=== PATIENT | female | born 1950 | race Caucasian/White ===

== ENCOUNTER → 2017-07-04 13:29 | Outpatient (CLI) | payer MEDICARE, BC | END | disposition home or self-care (01) | LOC: D.MAMMO 11:45 | DX: Z12.31 Encounter for screening mammogram for malignant neoplasm of breast (principal) ==

== ENCOUNTER 2018-03-12 16:06 | Emergency (ER) | payer MEDICARE, BC ==
[~2018-03-12] VITALS: Ht 167.6 cm; Wt 80.9 kg
[~2018-03-12 16:06] MED LIST: DULCOLAX10 MG/SUPP RC; HYDROCHLOROTHIA25 MG PO; METOPROLOL TART50 MG PO; NORVASC2.5 MG PO; PLAVIX75 MG PO; VITAMIN D31000 UNIT PO
[2018-03-12 16:10] VITALS: Ht 167.6 cm; Wt 80.9 kg
[2018-03-12 16:40] LABS: BASOPHILS 0.1 % (0-2); EOSINOPHILS 0.5 % (0-7); HEMATOCRIT 39.7 % (36.0-48.0); HEMOGLOBIN 13.9 g/dL (12-16); IMMATURE GRANULOCYTES 0.3 % (0-5); MCH 31.7 pg (26.0-34.0); MCV 90.4 fL (80.0-100.0); MEAN PLATELET VOLUME 9.7 fL (7.4-10.4); MONOCYTES 10.6 % (2-11); NEUTROPHILS 75.5 % (40-80); PLATELET COUNT 205 10x3/uL (130-400); RBC 4.39 10x6/uL (4.00-5.40); RDW 12.2 % (11.5-14.5); WBC 10.3 10x3/uL (4.8-10.8)
[2018-03-12 16:40] LABS: APPEARANCE CLEAR (CLEAR); BILIRUBIN NEGATIVE (NEGATIVE); COLOR STRAW (YELLOW); GLUCOSE NEGATIVE (NEGATIVE); KETONE NEGATIVE (NEGATIVE); NITRITE NEGATIVE (NEGATIVE); PROTEIN NEGATIVE (NEGATIVE); UROBILINOGEN NORMAL (NORMAL)
[2018-03-12 16:53] LABS: APTT 25.6 SECONDS (22.8-39.4); INR 1.05 (0.85-1.17); PROTIME 13.1 SECONDS (11.6-15.0)
[2018-03-12 17:09] LABS: ALBUMIN 3.7 g/dL (3.4-5.0); ALKALINE PHOSPHATASE 136 U/L (46-116); ALT (SGPT) 25 U/L (10-68); BILIRUBIN - TOTAL 0.21 mg/dL (0.2-1.3); CALC OSMOLALITY 271 mosm/kg (275-300); CALCIUM 8.7 mg/dL (8.5-10.1); CHLORIDE - SERUM 100 mmol/L (98-107); CREATININE - SERUM 1.1 mg/dL (0.6-1.3); GLUCOSE 96 mg/dL (74-106); POTASSIUM - SERUM 3.7 mmol/L (3.5-5.1); PROTEIN - SERUM 7.4 g/dL (6.4-8.2); SODIUM 135 mmol/L (136-145); UREA NITROGEN 19 mg/dL (7-18); eGFR NON AFRICAN AMERICAN 52 mL/min (90-120)
[2018-03-12 17:19] LABS: CKMB 1.3 U/L (0.0-3.6); LIPASE 114 U/L (73-393)
[2018-03-12 17:21] LABS: TROPONIN-I < 0.017 ng/mL (0.000-0.060)
[2018-03-12] MEDS ORDERED: CATAPRES0.1 MG PO (19:01)
[2018-03-12 19:38] VITALS: BP 153/86
== END 2018-03-12 19:39 | disposition home or self-care (01) ==
LOC: D.ER 16:06
PROVIDERS: Emergency Medicine
DX: I10 Essential (primary) hypertension (principal); R07.9 Chest pain, unspecified; R06.02 Shortness of breath

== ENCOUNTER 2020-05-13 16:00 | Outpatient (CLI) | payer MEDICARE, BC ==
[2018-03-12 16:10] VITALS: BMI 28.8
[~2020-05-13 16:00] MED LIST changes: +CATAPRES0.1 MG PO
== END 2020-05-13 23:59 | disposition home or self-care (01) ==
LOC: D.MAMMO 16:00
PROVIDERS: ATTEND Family Medicine
DX: Z12.31 Encounter for screening mammogram for malignant neoplasm of breast (principal)

== ENCOUNTER 2021-02-02 10:58 | Inpatient (IN) | payer MEDICARE, BC ==
[~2021-02-02] VITALS: Ht 167.6 cm; Wt 85.5 kg
[2021-02-02] VITALS (11 sets, daily range): BP systolic 149–186; BP diastolic 52–75
--- NOTE | 2021-02-02 11:30 | NUR ---
1130: PT TO ROOM 11, A&OX3, GCS 15, RR EVEN & UNLABORED, NO S/S OF ACUTE DISTRESS NOTED AT THIS TIME, PT SET TO MONITOR, EKG COMPLETED, BLOOD DRAWN AND SENT TO LAB, IV INITIATED TO RAC. WILL CONTINUE TO MONITOR. 1200: PT AMBULATED TO BATHROOM AND BACK WITH A STEADY GAIT. 1245: PT TO RADIOLOGY AT THIS TIME, NO S/S OF ACUTE DISTRESS NOTED AT TIME OF TRANSFER. 1300: PT RETURNED TO ROOM. 1400: PT RESTING IN ROOM AT THIS TIME, SET TO MONITOR, NO S/S OFA CUTE DISTRESS NOTED AT THIS TIME, WILL CONTINUE TO MONITOR., 1500: PT RETURNED FROM RADIOLOGY. NO S/S OF ACUTE DISTRESS NOTED, WILL CONTINUE TO MONITOR. 1600: SPOKE WITH CONSERVATION WORKER, PT TO BE NPO AT WA, AND NO CAFFINE AT ALL TODAY OR AFTER WA. NO S/S OF ACUTE DISTRESS NOTED AT THIS TIME, WILL CONTINUE TO MONITOR. 1700: PT TO RADIOLOGY AFTER HAVING DRANK DYE. NO S/S OF ACUTE DISTRES SNOTED AT TIME OF TRANSFER. 1800: PT GIVEN KANDIS TRAY, NO CAFFIEN 1900: REPORT GIVEN TO NIGHT RN, NO S/S OF ACUTE DISTRESS NOTED AT THIS TIME.
[2021-02-02 11:55] LABS: BASOPHILS 0.4 % (0-2); EOSINOPHILS 0.3 % (0-7); HEMATOCRIT 40.5 % (36.0-48.0); HEMOGLOBIN 13.7 g/dL (12-16); MCHC 33.8 g/dL (31.0-37.0); MCV 88.6 fL (80.0-100.0); MEAN PLATELET VOLUME 7.4 fL (7.4-10.4); MONOCYTES 10.6 % (2-11); NEUTROPHILS 79.7 % (40-80); RBC 4.57 10x6/uL (4.00-5.40); RDW 12.9 % (11.5-14.5); WBC 10.1 10x3/uL (4.8-10.8)
[2021-02-02 12:04] LABS: CALC OSMOLALITY 260 mosm/kg (275-300); CALCIUM 9.1 mg/dL (8.5-10.1); CARBON DIOXIDE 25.6 mmol/L (21.0-32.0); CHLORIDE - SERUM 93 mmol/L (98-107); CREATININE - SERUM 1.2 mg/dL (0.6-1.3); GLUCOSE 109 mg/dL (74-106); SODIUM 128 mmol/L (136-145); UREA NITROGEN 20 mg/dL (7-18); eGFR NON AFRICAN AMERICAN 47 mL/min (90-120)
[2021-02-02 12:31] LABS: ALBUMIN 4.3 g/dL (3.4-5.0); ALKALINE PHOSPHATASE 142 U/L (30-120); ALT (SGPT) 27 U/L (10-68); BILIRUBIN - TOTAL 0.31 mg/dL (0.2-1.3); CREATINE KINASE 90 UL (21-215); PROTEIN - SERUM 7.9 g/dL (6.4-8.2); TROPONIN-I < 0.017 ng/mL (0.000-0.060)
[2021-02-02 12:39] LABS: PLATELET COUNT 312 10x3/uL (130-400)
[2021-02-02 13:44] LABS: APTT 27.6 SECONDS (22.8-39.4); INR 1.16 (0.85-1.17); PROTIME 13.7 SECONDS (11.6-15.0)
[2021-02-02 13:54] LABS: BILIRUBIN NEGATIVE (NEGATIVE); KETONE NEGATIVE mg/dL (< 1+); NITRITE NEGATIVE (NEGATIVE); UROBILINOGEN NORMAL mg/dL (< 2)
--- NOTE | 2021-02-02 15:26 | NUR ---
DR. ROSEANNE FLOYD FOR CONSULT
--- NOTE | 2021-02-02 15:29 | NUR ---
SPOKE TO DR MISTRY ABOUT CONSULT, INFORMATION GIVEN
[2021-02-02 17:50] LABS: CKMB 1.2 U/L (0.0-3.6); CREATINE KINASE 86 UL (21-215)
[2021-02-02 17:55] LABS: TROPONIN-I < 0.017 ng/mL (0.000-0.060)
[2021-02-03 00:30] VITALS: BP 136/55
[2021-02-03 00:35] LABS: CKMB 1.1 U/L (0.0-3.6); CREATINE KINASE 97 UL (21-215); TROPONIN-I < 0.017 ng/mL (0.000-0.060)
[2021-02-03 04:30] VITALS: BP 148/65
[2021-02-03 06:21] LABS: BASOPHILS 0.5 % (0-2); EOSINOPHILS 0.3 % (0-7); HEMATOCRIT 39.1 % (36.0-48.0); HEMOGLOBIN 13.4 g/dL (12-16); LYMPHOCYTES 12.2 % (15-50); MCHC 34.2 g/dL (31.0-37.0); MCV 87.7 fL (80.0-100.0); MEAN PLATELET VOLUME 6.9 fL (7.4-10.4); MONOCYTES 9.9 % (2-11); NEUTROPHILS 77.1 % (40-80); PLATELET COUNT 278 10x3/uL (130-400); RBC 4.46 10x6/uL (4.00-5.40); RDW 13.2 % (11.5-14.5); WBC 9.7 10x3/uL (4.8-10.8)
[2021-02-03 06:47] LABS: ALBUMIN 3.7 g/dL (3.4-5.0); ALKALINE PHOSPHATASE 103 U/L (30-120); ALT (SGPT) 23 U/L (10-68); BILIRUBIN - TOTAL 0.35 mg/dL (0.2-1.3); CALC OSMOLALITY 260 mosm/kg (275-300); CALCIUM 8.8 mg/dL (8.5-10.1); CARBON DIOXIDE 23.3 mmol/L (21.0-32.0); CHLORIDE - SERUM 97 mmol/L (98-107); CKMB 1.3 U/L (0.0-3.6); CREATINE KINASE 102 UL (21-215); GLUCOSE 105 mg/dL (74-106); PHOSPHOROUS 3.3 mg/dL (2.5-4.9); POTASSIUM - SERUM 3.6 mmol/L (3.5-5.1); PROTEIN - SERUM 7.4 g/dL (6.4-8.2); SODIUM 130 mmol/L (136-145); TROPONIN-I < 0.017 ng/mL (0.000-0.060); UREA NITROGEN 12 mg/dL (7-18); eGFR NON AFRICAN AMERICAN 58 mL/min (90-120)
[2021-02-03] MEDS ORDERED: ATIVAN0.5 MG PO (15:48)
[2021-02-03 17:24] VITALS: Ht 167.6 cm; Wt 85.5 kg
[2021-02-03 19:00] VITALS: BP 132/55
[2021-02-04] VITALS: BP 173/66
[2021-02-04 04:00] VITALS: BP 182/83
--- NOTE | 2021-02-04 04:58 | NUR ---
C/O NAUSEA. ZOFRAN GIVEN PER ORDERS. WILL REASSESS.
[2021-02-04 06:47] LABS: BASOPHILS 0.2 % (0-2); EOSINOPHILS 0.4 % (0-7); HEMATOCRIT 40.5 % (36.0-48.0); LYMPHOCYTES 15.7 % (15-50); MCH 30.2 pg (26.0-34.0); MCHC 34.5 g/dL (31.0-37.0); MCV 87.5 fL (80.0-100.0); MEAN PLATELET VOLUME 7.1 fL (7.4-10.4); MONOCYTES 11.5 % (2-11); NEUTROPHILS 72.2 % (40-80); PLATELET COUNT 300 10x3/uL (130-400); RBC 4.63 10x6/uL (4.00-5.40); RDW 12.9 % (11.5-14.5); WBC 8.8 10x3/uL (4.8-10.8)
[2021-02-04 07:01] LABS: ALBUMIN 3.9 g/dL (3.4-5.0); ANION GAP 13.2 mmol/L (8-16); BILIRUBIN - TOTAL 0.36 mg/dL (0.2-1.3); CARBON DIOXIDE 23.1 mmol/L (21.0-32.0); CREATININE - SERUM 1.1 mg/dL (0.6-1.3); MAGNESIUM - SERUM 2.1 mg/dL (1.8-2.4); POTASSIUM - SERUM 3.3 mmol/L (3.5-5.1); PROTEIN - SERUM 7.7 g/dL (6.4-8.2)
[2021-02-04 07:02] LABS: PHOSPHOROUS 2.2 mg/dL (2.5-4.9)
[2021-02-04 08:00] VITALS: BP 167/64
[2021-02-04] MEDS ORDERED: NORVASC2.5 MG PO (10:22)
[2021-02-04] MEDS ORDERED: ASPIRIN81 MG PO (10:22)
[2021-02-04] MEDS ORDERED: PLAVIX75 MG PO (10:22)
[2021-02-04] MEDS ORDERED: ZOFRAN ODT4 MG/UDTAB PO (10:23)
--- NOTE | 2021-02-04 12:15 | NUR ---
IV AND TELEMETRY DCD. DC PLANS GIVEN. UNDERSTANDING VOICED. ESCORTED TO CAR BY W/C.
--- NOTE | 2021-02-04 13:44 | EC ---
PATIENT:RACHELE SANCHES DATE OF SERVICE: 02/03/21 SEX: F MEDICAL RECORD: [id number] DATE OF : [birth year] LOCATION:[address] AGE OF PATIENT: 70 ADMISSION DATE: 02/03/21 REFERRING PHYSICIAN: INTERPRETING PHYSICIAN: ARCENIO VILLATORO MD ECHOCARDIOGRAM REPORT ECHO CHARGES 4 ECHO COMPLETE Date: 02/03/21 CLINICAL DIAGNOSIS: POSSIBLE TIA ECHOCARDIOGRAPHIC MEASUREMENTS (adult normal given) AC root (d.<3.7cm) 2.5 cm LV Septum d (<1.2 cm> 0.9 cm Valve Excursion 1.8 cm LV Septum (systole) 1.1 cm Left Atria (s.<4.0cm> 3.7 cm LVPW d(<1.2cm) 0.9 cm RV (d.<2.3cm) 2.8 cm LVPW (sytole) 1.0 cm LV diastole(<5.6CM) 4.7 cm MV E-F(>70mm/sec) cm LV systole 3.7 cm LVOT Diameter 1.6 cm MV exc.(>10mm) 1.1 cm Est.ejection fraction (50-75%) % DOPPLER: LVIT cm/sec A 93 cm/sec E 52 cm/sec LA cm/sec RVSP 35 mmHg LVOT 106 cm/sec AOP1/2T m/s Asc. Ao 134 cm/sec RVOT 61 cm/sec RA cm/sec PA 103 cm/sec AV Gradient Peak 7.2 mmHg AV Mean 3.2 mmHg AV Area 1.9 cm MV Gradient Peak 4.7 mmHg MV Mean 1.9 mmHg MV Area cm COMMENTS: Business Administration Professor: Jennifer TREJO Pacs Administrator: 2 Dr. Mitchell TAPE# Pericardial Effusion N DATE OF SERVICE: 02/03/2021 CLINICAL DIAGNOSIS: Possible TIA. INTERPRETATION: Normal left ventricular chamber size and contractile function, ejection fraction of 55% to 60%. Left atrial chamber appears normal. Right atrium and right ventricular chamber size and function appears normal. Aortic valve appears normal. No aortic regurgitation/stenosis. Mitral valve appears normal. Trace to mild mitral regurgitation. Tricuspid valve appears normal. Mild tricuspid regurgitation. Pulmonic valve appears normal. No pulmonary ECHOCARDIOGRAM REPORT [id number] RACHELE SANCHES regurgitation noted. No pericardial effusion noted. IMPRESSION: Normal left ventricular chamber size and contractile function, ejection fraction 55% to 60%. TRANSINT:[id number] Voice Confirmation ID: [id number] DOCUMENT ID: [id number] ARCENIO VILLATORO MD at 1344 CC: [id number] DICTATION DATE: 02/03/21 1603 [employer] C[employer] HAND: 02/03/21 1820 DIS IN 02/04/21 [facility] [address] [facility], [facility]
== END 2021-02-04 12:15 | disposition home or self-care (01) | DRG 303 ==
LOC: D.ER 10:58 → D.EDHOLD 18:42 → OBSVTIME 18:42 → D.EDHOLD 02-03 14:49 → D.M2 02-03 14:49
PROVIDERS: Family Medicine; ADMIT Emergency Medicine; ATTEND Emergency Medicine
DX: I25.110 Atherosclerotic heart disease of native coronary artery with unstable angina pectoris (principal); E87.1 Hypo-osmolality and hyponatremia; G45.9 Transient cerebral ischemic attack, unspecified; I10 Essential (primary) hypertension; F41.9 Anxiety disorder, unspecified; R20.2 Paresthesia of skin; I44.7 Left bundle-branch block, unspecified